=== PATIENT | male | born 1930 | race Caucasian/White ===

== ENCOUNTER 2019-09-07 08:26 | Emergency (ER) | payer MEDICARE, BC ==
[~2019-09-07] VITALS: Ht 167.6 cm; Wt 59.0 kg
[~2019-09-07 08:26] MED LIST: ATORVASTATIN CA20 MG PO; Aspir 8181 MG PO; CLOP75 PO; COLE625 PO; Coq-10100 MG PO; DUTA.5 PO; FOLI1 PO; HYDHCL25 PO; NIACIN ER500 MG PO; Prinivil10 MG PO; Saw Palmetto C1 EACH PO; THYR60 PO; Valium5 MG PO
[2019-09-07] MEDS ORDERED: PLAVIX75 MG PO (08:48)
[2019-09-07] MEDS ORDERED: COMBIVENT RESPIM4 GM (08:48)
[2019-09-07] MEDS ORDERED: DONEPEZIL HCL10 M1 PO (08:48)
[2019-09-07] MEDS ORDERED: NP THYROID30 MG PO (08:48)
[2019-09-07] MEDS ORDERED: BREO ELLIPTA 11 EACH IH (08:49)
[2019-09-07] MEDS ORDERED: PRINIVIL10 MG PO (08:49)
[2019-09-07] MEDS ORDERED: Acetaminophen-1 EAC1 PO (08:49)
== END 2019-09-07 09:44 | disposition home or self-care (01) ==
LOC: ER 08:26
DX: S50.812A Abrasion of left forearm, initial encounter (principal); Z88.0 Allergy status to penicillin; Z88.2 Allergy status to sulfonamides; Z88.1 Allergy status to other antibiotic agents; Z88.8 Allergy status to other drugs, medicaments and biological substances; Z79.899 Other long term (current) drug therapy; Z79.82 Long term (current) use of aspirin; Z87.891 Personal history of nicotine dependence; Z23 Encounter for immunization; W01.0XXA Fall on same level from slipping, tripping and stumbling without subsequent striking against object, initial encounter
CPT/HCPCS: 90471; 90714; 99282-25

== ENCOUNTER 2021-01-25 17:47 | Emergency (ER) | payer OTHER, MEDICARE, BC ==
[~2021-01-25] VITALS: Ht 167.6 cm; Wt 55.8 kg
[~2021-01-25 17:47] MED LIST changes: +Acetaminophen-1 EAC1 PO; +BREO ELLIPTA 11 EACH IH; +COMBIVENT RESPIM4 GM; +DONEPEZIL HCL10 M1 PO; +NP THYROID30 MG PO; +PLAVIX75 MG PO; +PRINIVIL10 MG PO
[2021-01-25] MEDS ORDERED: ALBU90OI INH (19:17)
[2021-01-25] MEDS ORDERED: AMLO5 PO (19:18)
[2021-01-25] MEDS ORDERED: FURO20 PO (19:19)
[2021-01-25] MEDS ORDERED: POTA10T PO (19:21)
[2021-01-25 19:53] LABS: BASOPHILS ABSOLUTE AUTO 0.05 K/mm3 (0.00-0.23); BASOPHILS PERCENT AUTO 1 % (0-2); EOSINOPHILS ABSOLUTE AUTO 0.18 K/mm3 (0.00-0.68); EOSINOPHILS PERCENT AUTO 2 % (0-6); Hematocrit 37.2 % (37.0-53.0); Hemoglobin 12.2 g/dL (13.5-17.5); IMMATURE GRAN ABSOLUTE AUTO 0.01 K/mm3 (0.00-0.10); IMMATURE GRAN PERCENT AUTO 0 % (0-1); LYMPHOCYTES ABSOLUTE AUTO 0.93 K/mm3 (0.84-5.20); LYMPHOCYTES PERCENT AUTO 11 % (21-46); MONOCYTES ABSOLUTE AUTO 0.65 K/mm3 (0.16-1.47); MONOCYTES PERCENT AUTO 8 % (4-13); Mean Corpuscular HGB 31.2 pg (26.0-34.0); Mean Corpuscular HGB Conc 32.8 g/dL (31.5-36.5); Mean Corpuscular Volume 95 fL (80-100); Mean Platelet Volume 10.8 fL (9.1-12.4); NEUTROPHILS ABSOLUTE AUTO 6.84 K/mm3 (1.96-9.15); NEUTROPHILS PERCENT AUTO 79 % (41-73); Platelet Count 174 K/mm3 (150-400); RDW Coefficient Variation 12.8 % (11.7-14.2); RDW Standard Deviation 44.5 fL (35.1-46.3); Red Blood Cell Count 3.91 M/mm3 (4.30-5.90); White Blood Cell Count 8.66 K/mm3 (4.00-11.30)
[2021-01-25 19:56] LABS: Source, Urine Voided
[2021-01-25 20:00] LABS: Bilirubin, Urine Neg (Neg); Blood, Urine 5+ (Neg); Glucose Qualitative, Urine Neg (Neg); Ketones, Urine Neg (Neg); Leukocyte Esterase, Urine 2+ (Neg); Nitrite, Urine Neg (Neg); Protein, Urine 2+ (Neg); Urobilinogen, Urine NORM (Normal)
[2021-01-25 20:04] LABS: Albumin, Blood 3.8 g/dL (3.4-5.0); Albumin/Globulin Ratio 1.2 (0.8-1.8); Bilirubin, Total 0.6 mg/dL (0.1-1.0); Calcium, Blood 9.1 mg/dL (8.5-10.1); Creatinine, Blood 1.93 mg/dL (0.60-1.20); Globulin, Blood 3.1 g/dL (2.2-4.0); Potassium, Blood 4.1 mmol/L (3.5-5.5); Total Protein, Blood 6.9 g/dL (6.4-8.2)
[2021-01-25 20:06] LABS: Appearance, Urine Hazy (Clear); Color, Urine Pale Yellow (P-Yellow)
[2021-01-25 20:07] LABS: Red Blood Cells, Urine TNTC /hpf (0-2)
[2021-01-25 20:08] LABS: Amorphous Light (0-Heavy); Bacteria Mod /hpf; Hyaline Casts 0-2 /lpf (0-2); Squamous Epithelial Cells Few /hpf (Few)
[2021-01-25] MEDS ORDERED: CEFP200 PO (20:53)
== END 2021-01-25 21:09 | disposition home or self-care (01) ==
LOC: ER 17:47
PROVIDERS: Emergency Medicine
DX: N39.0 Urinary tract infection, site not specified (principal); Z79.02 Long term (current) use of antithrombotics/antiplatelets; Z79.899 Other long term (current) drug therapy; Z79.82 Long term (current) use of aspirin; Z88.0 Allergy status to penicillin; Z88.2 Allergy status to sulfonamides; Z88.1 Allergy status to other antibiotic agents
CPT/HCPCS: 74018; 80053; 81001; 85025; 87086; 93005; 93010; 99285-25; A9270

== ENCOUNTER 2021-01-26 11:17 | Emergency (ER) | payer OTHER, MEDICARE, BC ==
[~2021-01-26] VITALS: Ht 167.6 cm; Wt 56.7 kg
[~2021-01-26 11:17] MED LIST changes: +ALBU90OI INH; +AMLO5 PO; +CEFP200 PO; +FURO20 PO; +POTA10T PO
== END 2021-01-26 13:45 | disposition home or self-care (01) ==
LOC: ER 11:17
DX: I71.4 Abdominal aortic aneurysm, without rupture (principal); G30.9 Alzheimer's disease, unspecified; F02.80 Dementia in other diseases classified elsewhere, unspecified severity, without behavioral disturbance, psychotic disturbance, mood disturbance, and anxiety; Z79.899 Other long term (current) drug therapy; Z79.02 Long term (current) use of antithrombotics/antiplatelets; Z79.82 Long term (current) use of aspirin; Z88.2 Allergy status to sulfonamides; Z88.0 Allergy status to penicillin; Z88.1 Allergy status to other antibiotic agents; Z88.8 Allergy status to other drugs, medicaments and biological substances
CPT/HCPCS: 36415; 74176; 99283-25

== ENCOUNTER 2021-09-18 11:11 | Emergency (ER) | payer OTHER, BC ==
[~2021-09-18] VITALS: Ht 167.6 cm; Wt 55.3 kg
[~2021-09-18 11:11] MED LIST changes: +Armour Thyroid15 MG PO; -NP THYROID30 MG PO
[2021-09-18 11:48] LABS: BASOPHILS ABSOLUTE AUTO 0.03 K/mm3 (0.00-0.23); BASOPHILS PERCENT AUTO 0 % (0-2); EOSINOPHILS ABSOLUTE AUTO 0.06 K/mm3 (0.00-0.68); EOSINOPHILS PERCENT AUTO 1 % (0-6); Hemoglobin 13.7 g/dL (13.5-17.5); IMMATURE GRAN ABSOLUTE AUTO 0.02 K/mm3 (0.00-0.10); IMMATURE GRAN PERCENT AUTO 0 % (0-1); LYMPHOCYTES ABSOLUTE AUTO 1.13 K/mm3 (0.84-5.20); LYMPHOCYTES PERCENT AUTO 9 % (21-46); MONOCYTES ABSOLUTE AUTO 0.84 K/mm3 (0.16-1.47); MONOCYTES PERCENT AUTO 7 % (4-13); Mean Corpuscular HGB 30.5 pg (26.0-34.0); Mean Corpuscular HGB Conc 32.6 g/dL (31.5-36.5); Mean Corpuscular Volume 94 fL (80-100); Mean Platelet Volume 9.7 fL (9.1-12.4); NEUTROPHILS ABSOLUTE AUTO 9.88 K/mm3 (1.96-9.15); NEUTROPHILS PERCENT AUTO 83 % (41-73); Platelet Count 237 K/mm3 (150-400); RDW Coefficient Variation 14.2 % (11.7-14.2); RDW Standard Deviation 48.7 fL (35.1-46.3); Red Blood Cell Count 4.49 M/mm3 (4.30-5.90); White Blood Cell Count 11.96 K/mm3 (4.00-11.30)
[2021-09-18] MEDS ORDERED: LATA.005SO RIGHTEYE (11:49)
[2021-09-18] MEDS ORDERED: OMEP20ER PO (11:50)
[2021-09-18 12:00] LABS: Albumin, Blood 3.6 g/dL (3.4-5.0); Albumin/Globulin Ratio 0.9 (0.8-1.8); Bilirubin, Total 0.9 mg/dL (0.1-1.0); Bun/Creatinine Ratio 22.4 (12.0-20.0); Calcium, Blood 9.8 mg/dL (8.5-10.1); Creatinine, Blood 1.61 mg/dL (0.60-1.20); Globulin, Blood 3.9 g/dL (2.2-4.0); Potassium, Blood 4.5 mmol/L (3.5-5.5); Total Protein, Blood 7.5 g/dL (6.4-8.2)
[2021-09-18 13:39] LABS: Source, Urine Voided
[2021-09-18 13:45] LABS: Appearance, Urine Clear (Clear); Bilirubin, Urine Neg (Neg); Blood, Urine Neg (Neg); Color, Urine Yellow (P-Yellow); Glucose Qualitative, Urine Neg (Neg); Ketones, Urine 3+ (Neg); Leukocyte Esterase, Urine Neg (Neg); Nitrite, Urine Neg (Neg); Protein, Urine 2+ (Neg); Urobilinogen, Urine NORM (Normal)
[2021-09-18 13:55] LABS: Bacteria Rare /hpf; Red Blood Cells, Urine 0-2 /hpf (0-2); Squamous Epithelial Cells Few /hpf (Few); White Blood Cells, Urine 0-2 /hpf (0-5)
[2021-09-18] MEDS ORDERED: DOXY100 PO (14:18)
[2021-09-20] MEDS ORDERED: Zithromax250 MG PO (09:21)
== END 2021-09-18 15:30 | disposition home or self-care (01) ==
LOC: ER 11:11
PROVIDERS: Emergency Medicine
DX: R53.1 Weakness (principal); Z88.0 Allergy status to penicillin; Z88.2 Allergy status to sulfonamides; Z88.8 Allergy status to other drugs, medicaments and biological substances; Z88.1 Allergy status to other antibiotic agents; Z79.899 Other long term (current) drug therapy; Z79.82 Long term (current) use of aspirin
CPT/HCPCS: 36415; 70450; 80053; 81001; 85025; 93005; 93010; A9270